=== PATIENT | female | born 1975 | race Two or more races ===

== ENCOUNTER 2024-07-26 19:50 | Emergency (ER) | payer MEDICAID, SELFPAY ==
[2024-07-26 19:52] VITALS: BMI 29.0
[2024-07-26 20:21] VITALS: BP 126/68; PULSE 56; RESP 18; TEMP 37; O2SAT 99
--- NOTE | 2024-07-26 21:16 | EDNOTE_ITS ---
ED Allergic Reaction RME/HPI General Chief complaint: Abdominal Pain Stated complaint: ABD PAIN, SWELLING TO EXT AND FACE, RASH Arrival date/time: 07/26/24 19:50 RME / HPI RME / HPI narrative: Dr. Corral?s Main ED Evaluation: 49yo female with no significant past medical history presents to the ED for a chief complaint of generalized body itching. Patient states she started having general body itching and swelling to her feet, legs, and face after eating a [place] from [employer] Patient notes she had some redness to her legs and arms that has resolved. She denies any new detergents, lotions or soaps. Patient denies any N/V/D, fever, chills, sweating, shortness of breath or any other associated symptoms. No known allergies. Related Data Previous Rx's ?Medication ?Instructions ?Recorded [id number]-[id number]-[id number] 1 cap PO TID PRN julianna n #30 caps 08/28/21 50 mg-300 mg-40 mg capsule (Fioricet) ibuprofen 600 mg tablet 600 mg PO TID PRN pain #30 t abs 02/18/23 diphenhydramine HCl 25 mg capsule 25 mg PO TID PRN all ergic reaction 07/26/24 (Allergy (diphenhydramine)) #20 caps famotidine 20 mg tablet (Pepcid) 20 mg PO QDAY Allergi c reaction 07/26/24 #10 tabs Allergies Allergy/AdvReac Type Severity Reaction Status Date / Time No Known Allergies Allergy Verified 07/26/24 19:51 Review of Systems Review of Systems Systems Reviewed: All systems reviewed, normal except as documented Past Medical History Past Medical History NEUROLOGIC: Negative Neurological Disorders or Seizures CARDIAC: Negative Cardiac Disorders or Congestive Heart Failure RESPIRATORY: Negative Chronic Obstructive Pulmonary Disease (COPD) GASTROINTESTINAL: Positive Gastrointestinal Disorders, Gall Bladder Disease and Gastroesophageal Reflux Disease GENITOURINARY: Negative Genitourinary Disorders or Renal Disease REPRODUCTIVE: Positive Previous Pregnancies MUSCULOSKELETAL: Negative Musculoskeletal Disorders ENDOCRINE: Negative Endocrine Disorders, Diabetes Mellitus Type 1 or Diabetes Mellitus Type 2 HEMATOLOGIC: Negative Blood Disorders or Anemia OTHER HISTORY: Positive Chicken Pox; Negative Shingles, Falls, Blood Transfusions, Blood Transfusion Reaction, Anesthesia Reactions, MRSA, VRSA, Measles, Mumps or Cancer Family History FAMILY HISTORY: Positive Family Cardiac Disorders (Father-stroke) and Family Cancer (Father-prostate); Negative Family Anesthesia Reaction Surgical History SURGICAL: Positive Section Social History SMOKING STATUS: Never smoker ED Exam Narrative Physical exam: GENERAL APPEARANCE: alert and oriented x 4, well-developed, well-nourished, no acute distress VITALS: All vitals were reviewed and the pulse ox is 99% on room air, which is normal according to my interpretation. HEENT: Normocephalic, atraumatic; pupils equal, round, reactive to light; EOMI; mucous membranes pink, moist; oropharynx clear NECK: Supple LUNGS: CTABL; no wheezes, no rales, no rhonchi HEART: Regular rate, regular rhythm; normal S1, S2; no murmurs ABDOMEN: non distended; normal BS; soft, no tenderness, no guarding, no rebound; no masses, no organomegaly, no hernia BACK: no CVA tenderness EXTREMITIES: atraumatic; no edema NEUROLOGIC: awake; alert and oriented x4; cranial nerves II-XII grossly intact; no focal sensory or motor deficits PSYCHIATRIC: appropriate mood and affect SKIN: warm, dry, normal color; no rashes Course Quality Measures none Orders Category Date Time Status Dexamethasone Inj [Decadron Inj] Med 07/26/24 21:15 Discontinued 10 mg PO X1 ONE DiphenhydrAMINE [Benadryl] Med 07/26/24 21:15 Discontinued 25 mg PO X1 ONE Famotidine [Pepcid] Med 07/26/24 21:15 Discontinued 20 mg PO X1 ONE Vital Signs Vital signs: Vital Signs Temperature 98.6 F 07/26/24 20:21 Pulse Rate 56 L 07/26/24 20:21 Respiratory Rate 18 07/26/24 20:21 Blood Pressure 126/68 07/26/24 20:21 Pulse Oximetry (%) 99 07/26/24 20:21 Oxygen Delivery Method Room Air 07/26/24 20:21 Allergic Reaction MDM Narrative MDM Narrative:: Scribe Attestation: 07/26/24 Ines Jackson am scribing for and in the presence of Dr. Corral. Patient data External records reviewed:: [facility] previous records (Per chart review, patient was seen here on 02/18/23 for abdominal pain.) Clinical information provided by:: patient Social determinants that could affect healthcare access:: none Patient has the following chronic illnesses:: none How is presenting disease/condition affected by chronic disease/condition?: no chronic disease Evaluation data The following diagnostics were reviewed and interpreted by me:: other (specify) (none) Lab and/or radiology exams considered but not ordered:: none Interpretation Summary: none Medications / Prescriptions Medications or Prescriptions considered but not ordered:: none Medication administrations:: Medication Administration History Discontinued Medications Dexamethasone Sodium Phosphate (Dexamethasone Sod Phos Inj 10 Mg/Ml Vial) 10 mg PO X1 ONE Stop: 07/26/24 21:16 Diphenhydramine HCl (Diphenhydramine 25 Mg Capsule) 25 mg PO X1 ONE Stop: 07/26/24 21:16 Famotidine (Famotidine 20 Mg Tablet) 20 mg PO X1 ONE Stop: 07/26/24 21:16 see above Consultations Consultation(s) initiated? (list below): No Diagnosis Differential Diagnosis allergic reaction: anaphylaxis, urticaria and other (insect infestation) Most likely diagnosis given after review of the tests above:: see clinical impression below Admission Indicated Admission indicated?: not indicated Admission Request Was there a request for admission?: No Disposition Plan Disposition Plan: Discharge Discharge Attestation Discharge Attestation: The patient and all family members were given an opportunity to ask questions and understood the discharge instructions. Discharge instructions specifically effects, indications for sooner follow up or return to the emergency department, and the expected course of current diagnosis. Patient condition: Stable Discharge Plan Plan Patient Disposition: HOME (Self Care) Discharge Disposition comment: Stable for discharge home Patient condition on transfer: Stable Prescriptions/Referrals Prescriptions/Med Rec: New diphenhydramine HCl [Allergy (diphenhydramine)] 25 mg capsule 25 mg PO TID PRN (Reason: allergic reaction) Qty: 20 0RF famotidine [Pepcid] 20 mg tablet 20 mg PO QDAY Qty: 10 0RF No Action [id number]-[id number] [Fioricet] 50-300-40 mg capsule 1 cap PO TID PRN (Reason: pain) Qty: 30 0RF ibuprofen 600 mg tablet 600 mg PO TID PRN (Reason: pain) Qty: 30 0RF Referrals: [facility] [Provider Group] - In 1 week Problem List Clinical Impression: Pruritus Patient/Caregiver Discharge Instructions Discharge Activity: activity as tolerated Education Materials: ED Allerg React Other General Ch Additional Instructions: Please return to the emergency department if you have any worsening or any further medical problems and we will help you. Otherwise you should follow-up with your primary care doctor or in the family health care clinic within the next several days. Print Language: Azeri Stand Alone Forms: Brenda Award Info., Patient Portal Info Letter
[2024-07-26] MEDS: FAMOTIDINE 20 MG TABLET PO (22:10)
[2024-07-26] MEDS: DiphenhydrAMINE 25 MG CAPSULE PO (22:10)
[2024-07-26] MEDS: DEXAMETHASONE SOD PHOS INJ 10 MG/ML VIAL PO (22:10)
== END 2024-07-26 22:17 | disposition home or self-care (01) ==
PROVIDERS: Emergency Provider Emergency Medicine
DX: L29.9 Pruritus, unspecified (principal)
CPT/HCPCS: 99282; J1100; A9270